=== PATIENT | female | born 1960 ===

== ENCOUNTER 2023-01-18 14:07 | Outpatient (CLI) | payer OTHER, SELFPAY ==
--- NOTE | 2023-01-18 | ECG_ITS ---
Measurements Intervals [place] Rate: 83 P: 39 [place]: 155 QRS: 7 QRSD: 94 T: 31 QT: 364 QTc: 429 Interpretive Statements REDUCED QUALITY TRACING WITH BASELINE ARTIFACT SINUS RHYTHM GROSSLY NORMAL ECG NO PREVIOUS ECG AVAILABLE FOR COMPARISON Electronically Signed On 01-18-2023 14:52:13 CDT by Lisandro Austin M.D.
[2023-01-18 14:53] LABS: Sodium 138 mmol/L (137-145)
[2023-01-18 15:10] LABS: Anion Gap 8 mmol/L (8-16); Blood Urea Nitrogen 9 mg/dL (7-17); Calcium 9.7 mg/dL (8.4-10.2); Carbon Dioxide 27 mmol/L (22-30); Chloride 103 mmol/L (98-107); Estimated Glomerular Filt Rate 50; Glucose 127 mg/dL (65-110); Potassium 4.1 mmol/L (3.4-5.0)
== END 2023-01-18 14:08 | disposition home or self-care (01) ==
LOC: ANHLAB 14:11
PROVIDERS: PCP Family Medicine; Visit Provider Podiatrist Foot & Ankle Surgery
DX: I10 Essential (primary) hypertension (principal)
CPT/HCPCS: 36415; 80048; 93005

== ENCOUNTER 2024-02-10 13:47 | Outpatient (CLI) | payer OTHER, SELFPAY ==
--- NOTE | ~2024-02-10 | MM_ITS ---
EXAMINATION: MM screening norma BI w kayla HISTORY: Screening mammogram, family history of breast cancer in her sister. TECHNIQUE: Craniocaudal and mediolateral oblique 3-D tomosynthesis images were obtained and synthetic 2-D images were generated. CAD analysis was submitted and interpreted. COMPARISON: 04/02/2013 BREAST PARENCHYMAL COMPOSITION:Not Dense. The breasts are almost entirely fatty FINDINGS: No suspicious mass, calcification, or architectural distortion are identified in either miranda ast to suggest malignancy. There has been no suspicious interval change. IMPRESSION: No mammographic evidence of malignancy. Recommend routine screening mammography in one year. BI-RADS Category 1: Negative Reviewed, dictated and finalized at location .
== END 2024-02-10 13:48 | disposition home or self-care (01) ==
LOC: MICIMG 13:48
PROVIDERS: PCP Physician Assistant; Visit Provider Physician Assistant
DX: Z12.31 Encounter for screening mammogram for malignant neoplasm of breast (principal)
CPT/HCPCS: 77063; 77067

== ENCOUNTER 2025-05-17 16:27 | Emergency (ER) | payer OTHER, SELFPAY ==
--- NOTE | ~2025-05-17 | XR_ITS ---
XR knee LT min 4V 05/17/2025 17:52 Indication: Left knee pain Procedure: 4 views left knee Comparison: No prior studies for comparison. Findings: No fracture, subluxation or dislocation. No significant joint effusion. No foreign bodies. Impression: 1: No acute bone or joint abnormality. Reviewed, dictated and finalized at location O. LYST OPERATOR GASOLINE Impression: 1: No acute bone or joint abnormality.
[2025-05-17 17:03] VITALS: BP 136/66; PULSE 61; RESP 16; TEMP 36.3; O2SAT 100
--- OUTSIDE RECORDS SUMMARY | 2025-05-17 17:16 | XMS_ITS | Data Portability ---
[facility] Organization [facility] Address [address] [place] [address] Care Team Providers Care Nutritionist Name Role Phone LEDY FONSECA Primary Care Provider Assessment Encounter Date Assessment Date Assessment LastModified by Organization Details LastModified Time 12/08/2024 12/08/2024 Sections of the HPI, exam and assessment completed by Fabián Wilcox, JAVIER student and have been reviewed by me. I agree with the exam findings, assessment and plan except where specifically documented or amended. -Ledy Fonseca, [facility] [email or web address] Not available 12/08/2024 14:26:17 Plan of Treatment Reminders Order Date Submit Date Provider Last Modified By Organization Details Last Modified Time Details Appointments None recorded. Lab microalbumi n/creatinin e, mass ratio, urine 2024 025 NIKUNJ [facility], [address] [place] [address], [facility] [address], [place], [address], 14:13:33 HbA1c (hemoglobin A1c), blood 2024 025 [email or web address] In-Office Order, Internal Use Only DO Not Attach Compendium DO Not Attach Compendium, Do Not Delete/merge, [id number] 14:26:10 CMP, serum or plasma 2024 025 NIKUNJ [facility], [address], [address], [address], 09:16:12 lipid panel, serum or plasma 2024 025 NIKUNJ [facility], [address], [address], [place], [address], 5 09:16:10 CBC w/ auto diff 2024 025 NIKUNJ [facility], [address], [address], [place], [address], 5 09:16:13 TSH + free T4, serum 2024 025 NIKUNJ [facility], [address], [address], [place], [address], 5 09:16:09 HbA1c (hemoglobin A1c), blood 2024 025 [email or web address] In-Office Order, Internal Use Only DO Not Attach Compendium DO Not Attach Compendium, Do Not Delete/merge, 5 15:09:23 HbA1c (hemoglobin A1c), blood 2023 024 [email or web address] In-Office Order, Internal Use Only DO Not Attach Compendium DO Not Attach Compendium, Do Not Delete/merge, [id number] 14:24:57 lipid panel, serum 2023 024 NIKUNJ [facility], [address] [facility], [address], [place], [address], 4 08:28:12 HbA1c (hemoglobin A1c), blood 2023 024 [email or web address] In-Office Order, Internal Use Only DO Not Attach Compendium DO Not Attach Compendium, Do Not Delete/merge, [id number] 4 16:12:27 microalbumi n/creatinin e, mass ratio, urine 2023 024 NIKUNJ [facility], [address] [facility], [address], [place], [address], 4 08:28:09 Referral None recorded. Procedures None recorded. Surgeries None recorded. Imaging None recorded. Medication Orders Mounjaro 2.5 mg/0.5 mL subcutaneou s pen injector 2024 [email or web address], [address], [address], [place], [place], [id number], 14:43:06 hydroxyzine HCl 10 mg tablet 2024 025 NIKUNJ [facility], [address], [address], [place], [place], [id number], 5 15:06:43 Ozempic 2 mg/dose (8 mg/3 mL) subcutaneou s pen injector 2024 025 NIKUNJ [facility], [address], [address], [place], [place], [id number], 14:56:41 atorvastati n 40 mg tablet 2024 025 ANDERSON [facility], [address], [address], [place], [place], [id number], 5 15:06:42 propranolol 20 mg tablet 2023 025 ANDERSON [facility] #[id number], [address], [place], [id number], 5 15:04:19 nystatin 100,000 unit/gram topical powder 2023 024 [id number], [address], [place], [id number], 5 15:06:58 Ozempic 1 mg/dose (4 mg/3 mL) subcutaneou s pen injector 2023 024 [email or web address] [facility] #[id number], [address], [place], [place], [id number], 14:27:05 Ozempic 0.25 mg or 0.5 mg (2 mg/1.5 mL) subcutaneou s pen injector 2023 024 [email or web address] [facility], [address] [place] [address], [address], [place], [place], [id number], 14:39:52 amlodipine 10 mg tablet 2023 024 NIKUNJ [facility], [address] [place] [address], [address], [place], [place], [id number], 14:36:15 Patient TargetsNo targets recorded. Patient Instructions Encounter Date Encounter Id Patient Instructions Last Modified By Organization Details Last Modified Time 08/18/2024 [id number] A healthy lifestyle: care instructions [email or web address] Not available 08/18/2024 15:09:23 Reason for Referral None Reported. Results Created Date Observation Date Name Description Value Unit Range Abnormal Flag Note LastModifiedBy Organization Detail LastModifiedTime 11/19/1911/20/2023 ALBUM IN/CR EAT RATIO , RANDO M UR creatinine, urine 199.2 mg/dL notest ab. Not Available [facility] ([facility]) [address] [place], [address], 11/20/2023 08:28:09 11/19/1911/20/2023 ALBUM IN/CR EAT RATIO , RANDO M UR albumin, urine <3.0 ug/mL notest ab. Not Available [facility] ([facility]) [address] [facility], [place], [address], 11/20/2023 08:28:09 11/19/19 24 11/20/2023 ALBUM IN/CR EAT RATIO , RANDO M UR alb/creat ratio <2 Steff l: 0 - 29 Moder ately incre ased: 30 - 300 Sever dominguez incre ased: >300 Not Available [facility] ([facility]) [address] [facility], [place], [address], 11/20/2023 08:28:09 11/19/19 24 11/19/2023 HbA1c (hemo globi n A1c), blood HbA1c 6.5% Not Available In-Office Order Internal Use Only DO Not Attach Compendium DO Not Attach Compendium, Do Not Delete/merge, [id number] 11/19/2023 14:32:43 03/04/2003/05/2024 LIPID PANEL WITH LDL/H DL RATIO cholesterol, total 163 mg/dL 100-19 9 Not Available [facility] ([facility]) [address] [facility], [place], [address], 03/05/2024 08:28:12 03/04/20 24 03/05/2024 LIPID PANEL WITH LDL/H DL RATIO triglyceride s 121 mg/dL 0-149 Not Available [facility] ([facility]) [address] [facility], [place], [address], 03/05/2024 08:28:12 03/04/20 24 03/05/2024 LIPID PANEL WITH LDL/H DL RATIO HDL cholesterol 40 mg/dL >39 Not Available [facility] ([facility]) [address] [facility], [place], [address], 03/05/2024 08:28:12 03/04/20 24 03/05/2024 LIPID PANEL WITH LDL/H DL RATIO VLDL cholesterol rosangela 22 mg/dL 5-40 Not Available [facility] ([facility]) [address] [facility], [place], [address], 03/05/2024 08:28:12 03/04/20 24 03/05/2024 LIPID PANEL WITH LDL/H DL RATIO LDL chol calc ([facility]) 101 mg/dL 0-99 above high normal Not Available [facility] ([facility]) [address] [facility], [place], [address], 03/05/2024 08:28:12 03/04/20 24 03/05/2024 LIPID PANEL WITH LDL/H DL RATIO LDL/HDL ratio 2.5 ratio 0.0-3. 2 LDL/H DL Ratio Men Women 1/2 Avg.R isk 1.0 1.5 Avg.R isk 3.6 3.2 2X Avg.R isk 6.2 5.0 3X Avg.R isk 8.0 6.1 Not Available [facility] ([facility]) [address] [place], [address], 03/05/2024 08:28:12 03/04/20 24 03/04/2024 HbA1c (hemo globi n A1c), blood HbA1c 5.9% Not Available In-Office Order Internal Use Only DO Not Attach Compendium DO Not Attach Compendium, Do Not Delete/merge, [id number] 03/04/2024 14:24:44 08/19/1908/19/2024 TSH+F REE T4 TSH 1.500 uIU/m L 0.450- 4.500 Not Available [facility] ([facility]) [address] [facility], [place], [address], 08/19/2024 09:16:09 08/19/19 25 08/19/2024 TSH+F REE T4 T4,free(dire ct) 1.20 NG/dL 0.82-1 .77 Not Available [facility] ([facility]) [address] [place], [address], 08/19/2024 09:16:09 08/19/1908/19/2024 LIPID PANEL WITH LDL/H DL RATIO cholesterol, total 169 mg/dL 100-19 9 Not Available [facility] ([facility]) [address] [place], [address], 08/19/2024 09:16:10 08/19/19 25 08/19/2024 LIPID PANEL WITH LDL/H DL RATIO triglyceride s 109 mg/dL 0-149 Not Available [facility] ([facility]) [address] [facility], [place], [address], 08/19/2024 09:16:10 08/19/1908/19/2024 LIPID PANEL WITH LDL/H DL RATIO HDL cholesterol 43 mg/dL >39 Not Available [facility] ([facility]) [address] [place], [address], 08/19/2024 09:16:10 08/19/19 25 08/19/2024 LIPID PANEL WITH LDL/H DL RATIO VLDL cholesterol rosangela 20 mg/dL 5-40 Not Available [facility] ([facility]) [address] [place], [address], 08/19/2024 09:16:10 08/19/1908/19/2024 LIPID PANEL WITH LDL/H DL RATIO LDL chol calc ([facility]) 106 mg/dL 0-99 above high normal Not Available [facility] ([facility]) [address] [place], [address], 08/19/2024 09:16:10 08/19/1908/19/2024 LIPID PANEL WITH LDL/H DL RATIO LDL/HDL ratio 2.5 ratio 0.0-3. 2 LDL/H DL Ratio Men Women 1/2 Avg.R isk 1.0 1.5 Avg.R isk 3.6 3.2 2X Avg.R isk 6.2 5.0 3X Avg.R isk 8.0 6.1 Not Available [facility] ([facility]) [address] [place], [address], 08/19/2024 09:16:10 08/19/1908/19/2024 COMP. METAB OLIC PANEL (14) glucose 89 mg/dL 70-99 Not Available [facility] ([facility]) [address] [place], [address], 08/19/2024 09:16:12 08/19/19 25 08/19/2024 COMP. METAB OLIC PANEL (14) BUN 10 mg/dL 8-27 Not Available [facility] ([facility]) [address] [facility] [place], [address], 08/19/2024 09:16:12 08/19/19 25 08/19/2024 COMP. METAB OLIC PANEL (14) creatinine 1.13 mg/dL 0.57-1 .00 above high normal Not Available [facility] ([facility]) [address] [facility] [place], [address], 08/19/2024 09:16:12 08/19/19 25 08/19/2024 COMP. METAB OLIC PANEL (14) eGFR 55 mL/mi n/1.7 3 >59 below low normal Not Available [facility] ([facility]) [address] [facility], [place], [address], 08/19/2024 09:16:12 08/19/19 25 08/19/2024 COMP. METAB OLIC PANEL (14) BUN/creatini ne ratio 9 12-28 below low normal Not Available [facility] ([facility]) [address] [facility] [place], [address], 08/19/2024 09:16:12 08/19/19 25 08/19/2024 COMP. METAB OLIC PANEL (14) sodium 140 mmol/ L 134-14 4 Not Available [facility] ([facility]) [address] [facility] [place], [address], 08/19/2024 09:16:12 08/19/19 25 08/19/2024 COMP. METAB OLIC PANEL (14) potassium 4.3 mmol/ L 3.5-5. 2 Not Available [facility] ([facility]) [address] [facility] [place], [address], 08/19/2024 09:16:12 08/19/19 25 08/19/2024 COMP. METAB OLIC PANEL (14) chloride 102 mmol/ L 96-106 Not Available [facility] ([facility]) [address], [place], [address], 08/19/2024 09:16:12 08/19/1908/19/2024 COMP. METAB OLIC PANEL (14) carbon dioxide, total 23 mmol/ L 20 Not Available [facility] ([facility]) [address] [facility] [place], [address], 08/19/2024 09:16:12 08/19/1908/19/2024 COMP. METAB OLIC PANEL (14) calcium 9.4 mg/dL 8.7-10 .3 Not Available [facility] ([facility]) [address] [facility] [place], [address], 08/19/2024 09:16:12 08/19/1908/19/2024 COMP. METAB OLIC PANEL (14) protein, total 6.8 g/dL 6.0-8. 5 Not Available [facility] ([facility]) [address] [facility] [place], [address], 08/19/2024 09:16:12 08/19/1908/19/2024 COMP. METAB OLIC PANEL (14) albumin 4.4 g/dL 3.9-4. 9 Not Available [facility] ([facility]) [address] [facility] [place], [address], 08/19/2024 09:16:12 08/19/1908/19/2024 COMP. METAB OLIC PANEL (14) globulin, total 2.4 g/dL 1.5-4. 5 Not Available [facility] ([facility]) [address] [facility] [place], [address], 08/19/2024 09:16:12 08/19/1908/19/2024 COMP. METAB OLIC PANEL (14) bilirubin, total 0.5 mg/dL 0.0-1. 2 Not Available [facility] ([facility]) [address] [facility], [place], [address], 08/19/2024 09:16:12 08/19/1908/19/2024 COMP. METAB OLIC PANEL (14) alkaline phosphatase 83 IU/L 44-121 Not Available [facility] ([facility]) [address] [place], [address], 08/19/2024 09:16:12 08/19/1908/19/2024 COMP. METAB OLIC PANEL (14) AST (SGOT) 16 IU/L 0-40 Not Available [facility] ([facility]) [address] [facility] [place], [address], 08/19/2024 09:16:12 08/19/1908/19/2024 COMP. METAB OLIC PANEL (14) ALT (SGPT) 20 IU/L 0-32 Not Available [facility] ([facility]) [address] [facility], [place], [address], 08/19/2024 09:16:12 08/19/1908/19/2024 CBC WITH DIFFE RENTI AL/PL ATELE T WBC 6.2 x10e3 /uL 3.4-10 .8 Not Available [facility] ([facility]) [address] [facility] [place], [address], 08/19/2024 09:16:13 08/19/1908/19/2024 CBC WITH DIFFE RENTI AL/PL ATELE T RBC 5.16 x10e6 /uL 3.77-5 .28 Not Available [facility] ([facility]) [address] [facility] [place], [address], 08/19/2024 09:16:13 08/19/1908/19/2024 CBC WITH DIFFE RENTI AL/PL ATELE T hemoglobin 14.0 g/dL 11.1-1 5.9 Not Available [facility] ([facility]) [address] [facility] [place], [address], 08/19/2024 09:16:13 08/19/1908/19/2024 CBC WITH DIFFE RENTI AL/PL ATELE T hematocrit 43.0 % 34.0-4 6.6 Not Available [facility] ([facility]) [address] [facility], [place], [address], 08/19/2024 09:16:13 08/19/1908/19/2024 CBC WITH DIFFE RENTI AL/PL ATELE T MCV 83 fL 79-97 Not Available [facility] ([facility]) [address] [facility], [place], [address], 08/19/2024 09:16:13 08/19/1908/19/2024 CBC WITH DIFFE RENTI AL/PL ATELE T MCH 27.1 pg 26.6-3 3.0 Not Available [facility] ([facility]) [address] [facility], [place], [address], 08/19/2024 09:16:13 08/19/1908/19/2024 CBC WITH DIFFE RENTI AL/PL ATELE T MCHC 32.6 g/dL 31.5-3 5.7 Not Available [facility] ([facility]) [address] [facility], [place], [address], 08/19/2024 09:16:13 08/19/1908/19/2024 CBC WITH DIFFE RENTI AL/PL ATELE T RDW 14.8 % 11.7-1 5.4 Not Available [facility] ([facility]) [address] [place], [address], 08/19/2024 09:16:13 08/19/1908/19/2024 CBC WITH DIFFE RENTI AL/PL ATELE T platelets 195 x10e3 /uL 150-45 0 Not Available [facility] ([facility]) [address] [facility], [place], [address], 08/19/2024 09:16:13 08/19/1908/19/2024 CBC WITH DIFFE RENTI AL/PL ATELE T neutrophils 54 % notest ab. Not Available [facility] ([facility]) [address] [facility], [place], [address], 08/19/2024 09:16:13 08/19/1908/19/2024 CBC WITH DIFFE RENTI AL/PL ATELE T lymphs 34 % notest ab. Not Available [facility] ([facility]) [address] [facility], [place], [address], 08/19/2024 09:16:13 08/19/1908/19/2024 CBC WITH DIFFE RENTI AL/PL ATELE T monocytes 10 % notest ab. Not Available [facility] ([facility]) [address] [facility], [place], [address], 08/19/2024 09:16:13 08/19/1908/19/2024 CBC WITH DIFFE RENTI AL/PL ATELE T eos 1 % notest ab. Not Available [facility] ([facility]) [address] [facility], [place], [address], 08/19/2024 09:16:13 08/19/1908/19/2024 CBC WITH DIFFE RENTI AL/PL ATELE T basos 1 % notest ab. Not Available [facility] ([facility]) [address] [facility], [place], [address], 08/19/2024 09:16:13 08/19/1908/19/2024 CBC WITH DIFFE RENTI AL/PL ATELE T neutrophils (absolute) 3.3 x10e3 /uL 1.4-7. 0 Not Available [facility] ([facility]) [address] [facility], [place], [address], 08/19/2024 09:16:13 08/19/1908/19/2024 CBC WITH DIFFE RENTI AL/PL ATELE T lymphs (absolute) 2.1 x10e3 /uL 0.7-3. 1 Not Available [facility] ([facility]) [address] [facility], [place], [address], 08/19/2024 09:16:13 08/19/1908/19/2024 CBC WITH DIFFE RENTI AL/PL ATELE T monocytes(ab solute) 0.6 x10e3 /uL 0.1-0. 9 Not Available [facility] ([facility]) [address] [facility], [place], [address], 08/19/2024 09:16:13 08/19/1908/19/2024 CBC WITH DIFFE RENTI AL/PL ATELE T eos (absolute) 0.1 x10e3 /uL 0.0-0. 4 Not Available [facility] ([facility]) [address] [facility], [place], [address], 08/19/2024 09:16:13 08/19/1908/19/2024 CBC WITH DIFFE RENTI AL/PL ATELE T baso (absolute) 0.0 x10e3 /uL 0.0-0. 2 Not Available [facility] ([facility]) [address] [facility], [place], [address], 08/19/2024 09:16:13 08/19/1908/19/2024 CBC WITH DIFFE RENTI AL/PL ATELE T immature granulocytes 0 % notest ab. Not Available [facility] ([facility]) [address] [place], [address], 08/19/2024 09:16:13 08/19/1908/19/2024 CBC WITH DIFFE RENTI AL/PL ATELE T immature grans (abs) 0.0 x10e3 /uL 0.0-0. 1 Not Available [facility] ([facility]) [address] [place], [address], 08/19/2024 09:16:13 08/19/19 25 08/18/2024 HbA1c (hemo globi n A1c), blood HbA1c 5.6% Not Available In-Office Order Internal Use Only DO Not Attach Compendium DO Not Attach Compendium, Do Not Delete/merge, [id number] 08/18/2024 15:08:31 12/09/19 25 12/09/2024 ALBUM IN/CR EAT RATIO , RANDO M UR creatinine, urine 110.7 mg/dL notest ab. Not Available [facility] ([facility]) [address] [facility], [place], [address], 12/09/2024 14:13:32 12/09/19 25 12/09/2024 ALBUM IN/CR EAT RATIO , RANDO M UR albumin, urine <3.0 ug/mL notest ab. Not Available [facility] ([facility]) [address] [facility], [place], [address], 12/09/2024 14:13:32 12/09/19 25 12/09/2024 ALBUM IN/CR EAT RATIO , RANDO M UR alb/creat ratio <3 Steff l: 0 - 29 Moder ately incre ased: 30 - 300 Sever dominguez incre ased: >300 Not Available [facility] ([facility]) [address] [place], [address], 12/09/2024 14:13:32 12/09/19 25 12/08/2024 HbA1c (hemo globi n A1c), blood HbA1C 5.8 % Not Available In-Office Order Internal Use Only DO Not Attach Compendium DO Not Attach Compendium, Do Not Delete/merge, 12/08/2024 14:25:59 02/10/20 24 02/10/2024 MAMMisabela Ridley bilat eral No observ ation record ed. NIKUNJ [facility] [address], [place], [address], 02/10/2024 20:56:43 Result Notes None recorded. Problems Name Problem SNOMED Code Status Onset Date Resolution Date Notes Provider Name and Address Organization Details Recorded Time Hypertensive disorder 79399549 Active 2023 MAXINE Padilla, [place] - [place] 4 14:38:08 Malignant neoplasm of colon 672830341 Active 2023 JAVIER BATEMAN Attn: Quinn gerardo,[address] [facility], [place], [address], [facility] - SI 4 09:16:25 Essential hypertension 87914973 Active 2023 JAVIER BATEMAN Attn: Quinn gerardo,[address] [facility], [place], [place], [address] [place] [address] 2, [facility] - SI 4 09:16:24 Type 2 diabetes mellitus without complication 036064320 Active 2023 JAVIER BATEMAN Attn: Quinn gerardo,[address] [facility], [place], [place], [address] [place] [address] 2, [facility] - [facility] 4 09:12:36 Social phobia 17603079 Active 2023 JAVIER BATEMAN Attn: Quinn gerardo,[address] [facility], [place], [address], [facility] - SI 4 15:27:22 Problem Notes None recorded. Procedures Surgical History Date Name Laterality Status Provider Name and Address Organization Details Recorded Time section completed Emelia Saldana MA [facility] 08/15/2023 14:39:11 screening for malignant neoplasm of colon completed Emelia Saldana MA [facility] 08/15/2023 14:39:18 Imaging Results None recorded. Procedure Notes None recorded. Medical Equipment None Reported. Allergies Allergen ID Allergen Name Allergen Category Reaction Reaction Severity Criticality Documentation Date Start Date Code Code System Note Provider Name and Address Organization Details Recorded Time Product containin g penicilli n (product) medicatio n Not available Not available Not available 08/15/2023 [id number] SNOMED MAXINE Padilla, [facility] 4 14:37:29 Medications Name Sig Start Date Stop Date Status Note LastModified by Organization Details LastModified Time atorvastati n 40 mg tablet TAKE 1 TABLET BY MOUTH DAILY AT DINNER FOR HIGH CHOLESTER OL 2024 active Not Available Not Available Not Avai lable metformin 500 mg tablet TAKE 1 TABLET EVERDAY WITH MEALS FOR 1 WK, THEN TAKE 1 TABLET TWICE A DAY WITH MEALS FOR 1 WK, THEN TAKE 2 TABLETS TWICE A DAY WITH MEALS FOR 30 DAYS 11/18 completed Not Available Not Available Not Available amlodipine 2.5 mg tablet Take 1 tablet every day by oral route in the morning for 30 days. 11/18 completed Not Available Not Available Not Available aspirin 81 mg tablet,ирина yed release Take 1 tablet every day by oral route in the morning for 30 days. active Not Available Not Available No t Available oxycodone-a cetaminophe n 5 mg-325 mg tablet TAKE 1 TABLET BY MOUTH EVERY 4 TO 6 HOURS NEEDED FOR PAIN 09/18 completed Not Available Not Available Not Available amlodipine 10 mg tablet TAKE 1 TABLET BY MOUTH DAILY IN THE MORNING FOR HIGH BLOOD PRESSURE 2024 active Not Available Not Available Not Avai lable propranolol 20 mg tablet TAKE 1 TABLET BY MOUTH 30 MINUTES TO 1 HOUR BEFORE SOCIAL ACTIVITY 08/18 completed Not Available Not Available Not Available hydroxyzine HCl 10 mg tablet TAKE 1 TABLET BY MOUTH THREE TIMES DAILY NEEDED active Not Available Not Available No t Available Asprin Ec Low Dose 81 mg tablet,ирина yed release Take 1 tablet every day by oral route. 08/14 completed Not Available Not Available Not Available amlodipine 08/14 completed Not Available Not Available Not Available OneTouch Verio test strips USE TO TEST TWICE DAILY active Not Available Not Available No t Available Ozempic 0.25 mg or 0.5 mg (2 mg/1.5 mL) subcutaneou s pen injector Inject 0.25 mg every week by subcutane ous route as directed for 30 days, for type 2 diabetes. 11/18 completed Not Available Not Available Not Available OneTouch Delica Plus Lancet 33 gauge USE TO TEST TWICE DAILY active Not Available Not Available No t Available OneTouch Verio Reflect Meter USE TO CHECK SUGAR TWICE DAILY active Not Available Not Available No t Available Ozempic 1 mg/dose (4 mg/3 mL) subcutaneou s pen injector INJECT 1MG UNDER THE SKIN ONCE WEEKLY DIRECTED 03/04 completed Not Available Not Available Not Available Ozempic 2 mg/dose (8 mg/3 mL) subcutaneou s pen injector Inject 2 mg every week by subcutane ous route as directed for 30 days, for diabetes. 04/07 completed Not Available Not Available Not Available Mounjaro 7.5 mg/0.5 mL subcutaneou s pen injector INJECT 7.5 MG UNDER THE SKIN ONE DAY A WEEK 04/07 completed Not Available Not Available Not Available Mounjaro 5 mg/0.5 mL subcutaneou s pen injector ADMINISTE R 5 MG UNDER THE SKIN EVERY WEEK DIRECTED FOR DIABETES 04/07 completed Not Available Not Available Not Available Mounjaro 10 mg/0.5 mL subcutaneou s pen injector ADMINISTE R 10 MG UNDER THE SKIN EVERY WEEK DIRECTED FOR DIABETES active Not Available Not Available No t Available Mounjaro 2.5 mg/0.5 mL subcutaneou s pen injector Inject 2.5 mg every week by subcutane ous route as directed for 30 days, for diabetes. 04/07 completed Not Available Not Available Not Available Ozempic 0.25 mg or 0.5 mg (2 mg/3 mL) subcutaneou s pen injector INJECT 0.5MG UNDER THE SKIN EVERY WEEK DIRECTED 11/18 completed Not Available Not Available Not Available Klayesta 100,000 unit/gram topical powder APPLY TO AFFECTED AREA TWICE DAILY active PRN Not Available Not Available No t Available Vitals Date Recorded Body height Body mass index (BMI) Body weight Oxygen saturation Heart rate Respiratory rate Systolic And Diastolic Provider Name and Address Organization Details Last Updated DateTime 160.02 cm 37.6 kg/m2 25702.6 8 g 97 % 66 /min 17 /min 123/82 mm[Hg] Elsy Larios [place] - [facility] 14:43:02 Date Recorded Body height Body mass index (BMI) Body weight Oxygen saturation Heart rate Respiratory rate Systolic And Diastolic Provider Name and Address Organization Details Last Updated DateTime 4 160.02 cm 43.9 kg/m2 211335. 91 g 98 % 79 /min 16 /min 154/90 mm[Hg] Emelia Saldana MA [facility] 4 14:19:23 Date Recorded Systolic And Diastolic Provider Name and Address Organization Details Last Updated DateTime 11/19/2023 130/80 mm[Hg] JAVIER BAETMAN Attn: Accounting,[address] [place], [address], [facility] 11/19/2023 14:57:26 Date Recorded Body height Body mass index (BMI) Body weight Oxygen saturation Heart rate Respiratory rate Systolic And Diastolic Provider Name and Address Organization Details Last Updated DateTime 4 160.02 cm 42.6 kg/m2 528945. 57 g 97 % 74 /min 17 /min 138/83 mm[Hg] Elsy Larios MA [facility] 4 14:30:28 Date Recorded Body height Body mass index (BMI) Body weight Oxygen saturation Heart rate Respiratory rate Systolic And Diastolic Provider Name and Address Organization Details Last Updated DateTime 5 160.02 cm 37.2 kg/m2 60497.8 g 97 % 84 /min 16 /min 129/75 mm[Hg] Elsy Larios MA [facility] 5 14:20:08 Date Recorded Body height Body mass index (BMI) Body weight Oxygen saturation Heart rate Respiratory rate Systolic And Diastolic Provider Name and Address Organization Details Last Updated DateTime 4 160.02 cm 39.7 kg/m2 195460. 69 g 97 % 68 /min 16 /min 118/61 mm[Hg] Emelia Saldana MA [facility] 4 14:21:53 Social History Question Answer Notes LastModified by Organizat ion Details LastModified Time Tobacco Smoking Status Never Smoker Emelia Saldana MA null, [facility] 08/15/2023 14:39:03 What Is Your Level Of Caffeine Consumption? Occasional Information not available 08/18/2024 What Was The Date Of Your Most Recent Tobacco Screening? 12/08/2024 Information not available 12/08/2024 Has Tobacco Cessation Counseling Been Provided? Yes Information not available 08/15/2023 On What Date Was Tobacco Cessation Counseling Provided? 12/08/2024 Information not available 12/08/2024 Sex: Unknown Functional Status Question Answer Note LastModified by Organizat ion Details LastModified Time Do you use any illicit or recreational drugs? No Information not available 08/18/2024 What is your level of alcohol consumption? None Information not available 08/18/2024 Mental Status None recorded. Family History Relationship Description Onset Age of this Age Resolved Age Notes LastModified by Organization Details LastModified Time Father No current problems or disability [email or web address] Not available 08/14 14:38:52 Mother No current problems or disability [email or web address] Not available 08/14 14:38:52 Medical History Condition Response Coronary Artery Disease N Other N Atrial Fibrillation N High Blood Pressure Y Thyroid Problems N Kidney or Bladder Problems N GI Problems N Depression N COPD N Blood Clots N Eating Disorder N Skin Problems N Anemia N Heart Attack (NV) N Anxiety Disorder N Diabetes N Muscle, Joint, or Bone Problems N Arthritis N Seizures/Epilepsy N Acid Reflux (GERD) N Cancer N Stroke N Asthma N Allergies N ADHD N Substance Abuse N High Cholesterol N Hepatitis N Liver Disease N Schizophrenia N Headaches N Heart Failure N Osteoporosis N Gynecological History Statement/Question Response Date of Last Pap Smear Age at Menarche 56 Date of Last Mammogram Age at First Child 29 Obstetrics History GPAL:G 2 P 0 0 0 2 Type Value Living 2 Total 2 Immunizations Vaccine Type Date Status Note Provider Nam e and Address Organization Details Recorded Time Tdap 11/04/2018 completed Not Available [facility] 12/08/2024 14:11:47 COVID-19, mRNA, LNP-S, PF, 30 mcg/0.3 mL dose 08/05/2020 completed Not Available [facility] 14:11:47 COVID-19, mRNA, LNP-S, PF, 30 mcg/0.3 mL dose 08/30/2020 completed Not Available [facility] 14:11:47 Past Encounters Encounter ID Performer Location Encounter Start Date Encounter Closed Date Diagnosis/Indication Diagnosis SNOMED-CT Code Diagnosis ICD10 Code Diagnosis IMO Codes Diagnosis Note [id number] Kannan anders MD [facility] [address] [place] [address] 08/15/2023 14:30:09 08/15/2023 15:21:57 Essential hypertension 87652289 I10 BP 179/104, 160/104str essful event before appton amlodipine 2.[address] Lugo in the past due to HTN and murmurPEx- nl, no murmur appreciate d on examrec'd to buy BP cuffadvise d to check BP at home, goal BP <130/80, f/u with BP log in 1 wkf/u in 1 mo Malignant neoplasm of colon 845121141 C18.9 2014sigmoi d colon cancer, stage 2, removed 8 inches of colonno chemothera pyno FH of colonlast colonoscop y 3 yrs ago, follows with Dr. Yanez in [facility], told to repeat every 5 years Morbid obesity 325531539 E66.01 BMI 45.9gained 50 lbs in the past 3 yrsdiscuss ed increasing exercise and healthier food options, high protein, low fat dietdecrea se diet coke and sweets, smaller portion sizesexerc ise bike and walking as toleratedr outine labsf/u in 1 mo Bone spur of right foot 8882555970 43077 M25.774 repaired in [facility] ot walk long distances yet due to pain Screening for malignant neoplasm of breast 399236660 Z12.39 last mammo 5 yrs ago Screening for malignant neoplasm of cervix 083417281 Z12.4 last pap 5 yrs agorec'd to schedule [employer] Depression screening 171 453946 Z13.31 PHQ 4 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 x3 yrsa/w nasal congestion no relief with allergy medsadvise d to make eye dr prado, 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 to 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 [id number] Kannan anders MD [facility] [address] [place] [address] 09/19/2023 14:14:18 09/19/2023 14:45:52 Type 2 diabetes mellitus without complication 552865556 E11.9 09/19/23: after meal- 98-134, before meal- 118, 155attribu connor dizziness to metformin, can decrease dose to 1500 pending BS numbers, send numbers to portal in 2 wkswill send ozempic to see if insurance will coverf/u in 2 mo for a1c Last A1C:Fastin g BG range:Curr ent Therapy:St atin:LINDA/A RB:Foot Exam:Micro albumin:Pn eumovax 23:DM eye exam:Pt was counseled on low carbohydra te diet to better manage diabetes. We went discussed pt's diet at length and I made specific dietary recommenda tions. I also encouraged regular exercise of 30-60 minutes most days of the week. Pt was encouraged to get yearly diabetic eye exams as well. 08/15/23: hgb a1c 9.0start metformin and BS logf/u in 1 mo Essential hypertension 06660535 I10 09/19/23: BP at home 140-150s/8 0s, BP today 154/90can feel myself tensing with BP highincre ase amlodipine from 2.5 to 10 mgadvised to check BP at home, goal BP <130/80, f/u with BP log in 1 wk 08/15/23:BP 179/104, 160/104str essful event before appton amlodipine 2.[address] Lugo in the past due to HTN and murmurPEx- nl, no murmur appreciate d on examrec'd to buy BP cuffadvise d to check BP at home, goal BP <130/80, f/u with BP log in 1 wkf/u in 1 mo Screening for malignant neoplasm of breast 075802160 Z12.39 encouraged to schedule mammo Screening for malignant neoplasm of cervix 316824528 Z12.4 encouraged to make appt with [facility], last pap 5 yrs ago Screening for malignant neoplasm of colon 126458687 Z12.11 has appt this fall with Dr. Yanez Depression screening 171 995015 Z13.31 PHQ 0 [id number] Kannan anders MD [facility] [address] [place] [address] 11/19/2023 14:22:34 11/19/2023 14:50:13 Type 2 diabetes mellitus without complication 365772580 E11.9 11/19/23: a1c today 6.5%last a1c 9.0stopped metformin 2 months ago due to starting ozempicinc rease ozempic to 1 mgmicroalb umin pendingDF exam nlf/u in 3 mo 09/19/23: after meal- 98-134, before meal- 118, 155attribu connor dizziness to metformin, can decrease dose to 1500 pending BS numbers, send numbers to portal in 2 wkswill send ozempic to see if insurance will coverf/u in 2 mo for a1c Statin: ator 40ACE/ARB: not indicatedF oot Exam: nl, 11/19/23Mic roalbumin: pendingPne umovax 23: NEXT VISITDM eye exam: NEXT VISITPt was counseled on low carbohydra te diet to better manage diabetes. We went discussed pt's diet at length and I made specific dietary recommenda tions. I also encouraged regular exercise of 30-60 minutes most days of the week. Pt was encouraged to get yearly diabetic eye exams as well. 08/15/23: hgb a1c 9.0start metformin and BS logf/u in 1 mo Depression screening 171 504703 Z13.31 PHQ 0 Candidiasis of skin 4988 3006 B37.2 c/o red rash below breasts due to sweating from heatno relief with desitintri al nystatin powder Screening for malignant neoplasm of breast 305784343 Z12.39 scheduled Jan 2024 at [facility] Essential hypertension 13990594 I10 11/19/23: BP at home 130s/80sBP in office 138/83, 130/80, c/w amlodipine 10 mg 09/19/23: BP at home 140-150s/8 0s, BP today 154/90can feel myself tensing with BP highincre ase amlodipine from 2.5 to 10 mgadvised to check BP at home, goal BP <130/80, f/u with BP log in 1 wk 08/15/23:BP 179/104, 160/104str essful event before appton amlodipine 2.[address] Lugo in the past due to HTN and murmurPEx- nl, no murmur appreciate d on examrec'd to buy BP cuffadvise d to check BP at home, goal BP <130/80, f/u with BP log in 1 wkf/u in 1 mo [id number] Roberth Caro MD [facility] [address] [place] [address] 03/04/2024 14:18:08 03/04/2024 14:41:06 Type 2 diabetes mellitus without complication 656791506 E11.9 03/04/24: a1c today 5.9 %last a1c 6.5%declin ed prevnar 20 vaccinec/w ozempic 2 mgf/u in 3 mo for a1c 11/19/23: a1c today 6.5%last a1c 9.0stopped metformin 2 months ago due to starting ozempicinc rease ozempic to 1 mgmicroalb umin pending- nlDF exam nlf/u in 3 mo 09/19/23: after meal- 98-134, before meal- 118, 155attribu connor dizziness to metformin, can decrease dose to 1500 pending BS numbers, send numbers to portal in 2 wkswill send ozempic to see if insurance will coverf/u in 2 mo for a1c Statin: ator 40ACE/ARB: not indicatedF oot Exam: nl, 11/19/23Mic roalbumin: pendingPne umovax 23: NEXT VISITDM eye exam: NEXT VISITPt was counseled on low carbohydra te diet to better manage diabetes. We went discussed pt's diet at length and I made specific dietary recommenda tions. I also encouraged regular exercise of 30-60 minutes most days of the week. Pt was encouraged to get yearly diabetic eye exams as well. 08/15/23: hgb a1c 9.0start metformin and BS logf/u in 1 mo Essential hypertension 40311200 I10 03/04/24: BP 118/61, c/w amlodipine 10 11/19/23: BP at home 130s/80sBP in office 138/83, 130/80, c/w amlodipine 10 mg 09/19/23: BP at home 140-150s/8 0s, BP today 154/90can feel myself tensing with BP highincre ase amlodipine from 2.5 to 10 mgadvised to check BP at home, goal BP <130/80, f/u with BP log in 1 wk 08/15/23:BP 179/104, 160/104str essful event before appton amlodipine 2.[address] Lugo in the past due to HTN and murmurPEx- nl, no murmur appreciate d on examrec'd to buy BP cuffadvise d to check BP at home, goal BP <130/80, f/u with BP log in 1 wkf/u in 1 mo Screening for malignant neoplasm of cervix 234384600 Z12.4 encouraged to make appt with [facility], last pap 5 yrs ago Screening for malignant neoplasm of colon 678421157 Z12.11 encouraged to schedule appt with Dr. Yanez (GI) Social phobia 64011171 F 40.10 wants to trial propranolo l to help with social anxiety before work eventdaugh ter was prescribed from her PCP and it helped Depression screening 171 887408 Z13.31 PHQ 0 Hyperlipidemia 67167352 E78.5 re-check from 07/2023 labs and on ator 40 Influenza vaccination declined 432586281 Z28.21 [id number] Roberth Caro MD [facility] [address] [place] [address] 08/18/2024 14:19:45 08/18/2024 15:10:22 Type 2 diabetes mellitus without complication 452714187 E11.9 08/18/24: a1c today 5.6%, last a1c 5.9on ozempic 2 mgf/u in 3 mo, due for DF exam and microalbum in next visit 03/04/24: a1c today 5.9 %last a1c 6.5%declin ed prevnar 20 vaccinec/w ozempic 2 mgf/u in 3 mo for a1c 11/19/23: a1c today 6.5%last a1c 9.0stopped metformin 2 months ago due to starting ozempicinc rease ozempic to 1 mgmicroalb umin pending- nlDF exam nlf/u in 3 mo 09/19/23: after meal- 98-134, before meal- 118, 155attribu connor dizziness to metformin, can decrease dose to 1500 pending BS numbers, send numbers to portal in 2 wkswill send ozempic to see if insurance will coverf/u in 2 mo for a1c Statin: ator 40ACE/ARB: not indicatedF oot Exam: nl, 11/19/23Mic roalbumin: pendingPne umovax 23: NEXT VISITDM eye exam: NEXT VISITPt was counseled on low carbohydra te diet to better manage diabetes. We went discussed pt's diet at length and I made specific dietary recommenda tions. I also encouraged regular exercise of 30-60 minutes most days of the week. Pt was encouraged to get yearly diabetic eye exams as well. 08/15/23: hgb a1c 9.0start metformin and BS logf/u in 1 mo Hyperlipidemia 51594212 E78.5 refill Essential hypertension 93579450 I10 08/18/24: BP 123/82, c/w amlodipine 10 03/04/24: BP 118/61, c/w amlodipine 10 11/19/23: BP at home 130s/80sBP in office 138/83, 130/80, c/w amlodipine 10 mg 09/19/23: BP at home 140-150s/8 0s, BP today 154/90can feel myself tensing with BP highincre ase amlodipine from 2.5 to 10 mgadvised to check BP at home, goal BP <130/80, f/u with BP log in 1 wk 08/15/23:BP 179/104, 160/104str essful event before appton amlodipine 2.[address] Lugo in the past due to HTN and murmurPEx- nl, no murmur appreciate d on examrec'd to buy BP cuffadvise d to check BP at home, goal BP <130/80, f/u with BP log in 1 wkf/u in 1 mo Social phobia 76685126 F 40.10 08/18/24: tried propranolo l once and did not help with anxietywou ld like something PRN, advised pt of ADR 02/2024: wants to trial propranolo l to help with social anxiety before work eventdaugh ter was prescribed from her PCP and it helped Screening for malignant neoplasm of cervix 500213900 Z12.4 encouraged to make appt with [facility], last pap 5 yrs ago Screening for malignant neoplasm of colon 103337108 Z12.11 has appt with GI next month Depression screening 171 081329 Z13.31 PHQ 0 Obesity 713304140 E66.9 BMI 37.6routin e labs [id number] Roberth Caro MD [facility] [address] [place] [address] 12/08/2024 14:11:18 12/08/2024 14:46:22 Type 2 diabetes mellitus without complication 531326870 E11.9 12/08/24: a1c 5.8%, last a1c 5.6Switchi ng to Mounjaro 2.5, wanting to lose more weight (has plateaued over the last 6 months)meaghan roalbumin pendingf/u in 6 months for A1c 08/18/24: a1c today 5.6%, last a1c 5.9on ozempic 2 mgf/u in 3 mo, due for DF exam and microalbum in next visit 03/04/24: a1c today 5.9 %last a1c 6.5%declin ed prevnar 20 vaccinec/w ozempic 2 mgf/u in 3 mo for a1c 11/19/23: a1c today 6.5%last a1c 9.0stopped metformin 2 months ago due to starting ozempicinc rease ozempic to 1 mgmicroalb umin pending- nlDF exam nlf/u in 3 mo 09/19/23: after meal- 98-134, before meal- 118, 155attribu connor dizziness to metformin, can decrease dose to 1500 pending BS numbers, send numbers to portal in 2 wkswill send ozempic to see if insurance will coverf/u in 2 mo for a1c Statin: ator 40ACE/ARB: not indicatedF oot Exam: nl, 11/19/23Mic roalbumin: pendingPne umovax 23: NEXT VISITDM eye exam: NEXT VISITPt was counseled on low carbohydra te diet to better manage diabetes. We went discussed pt's diet at length and I made specific dietary recommenda tions. I also encouraged regular exercise of 30-60 minutes most days of the week. Pt was encouraged to get yearly diabetic eye exams as well. 08/15/23: hgb a1c 9.0start metformin and BS logf/u in 1 mo Essential hypertension 38850977 I10 12/08/24: BP 129/75, c/w amlodipine 10 08/18/24: BP 123/82, c/w amlodipine 10 03/04/24: BP 118/61, c/w amlodipine 10 11/19/23: BP at home 130s/80sBP in office 138/83, 130/80, c/w amlodipine 10 mg 09/19/23: BP at home 140-150s/8 0s, BP today 154/90can feel myself tensing with BP highincre ase amlodipine from 2.5 to 10 mgadvised to check BP at home, goal BP <130/80, f/u with BP log in 1 wk 08/15/23:BP 179/104, 160/104str essful event before appton amlodipine 2.[address] Lugo in the past due to HTN and murmurPEx- nl, no murmur appreciate d on examrec'd to buy BP cuffadvise d to check BP at home, goal BP <130/80, f/u with BP log in 1 wkf/u in 1 mo Malignant neoplasm of colon 761619182 C18.9 12/08/24: saw GI Dr. Vaughn 08/2024- History of sigmoid colon cancer s/p sigmoid colectomy 11/2012: She is overall doing very well now almost 12 years after her initial diagnosis and treatment, no evidence of recurrent disease on exam or based on symptomato logy. Given how far out she has, I do not think CEA is needed. She will be due for colonoscop y in 2025 which we will arrange, this being 5 years after her last colonoscop y in 2020. She should continue on daily aspirin as a chemopreve ntion agent as well as focus on continued weight loss and lifestyle issues to mitigate her colorectal cancer risk. 2014sigmoi d colon cancer, stage 2, removed 8 inches of colonno chemothera pyno FH of colonlast colonoscop y 3 yrs ago, [place], told to repeat every 5 years Depression screening 171 783147 Z13.31 1752616 PHQ 0 Cancer cer vix screening status 027163814 Z12.4 574794 encouraged to make appt with [facility], last pap 6 yrs ago Health Concerns Section Related Observation LastModified by Organization Detai ls LastModified Time None Recorded Concern Status LastModified by Organization Details LastModified Time None Recorded Advance Directives Directive None Recorded Payers Insurance Date Sequence Insurance Name Policy Number Policy Zapata Covered Member ID Zapata Member ID Guarantor Name 12/11/2024 1 [facility] [id number] Sarah Milligan Slemmer [id number] Sarah Pena Slemmer 08/15/2023 1 *SELF PAY* Fa kaylee Pena Slemmer Notes Date Note Type Note Provider Name and Address Organization Details Recorded Time 09/19/2023 text/html ROS as noted in the HPI Pt presents for T2DM f/u. Reports that she has been experiencing mild dizziness with standing since she started taking an increased dose of metformin. States that dizziness lasts a couple seconds and then goes away. Admits to adequate water intake and eating 2 meals/day. BP at home 140-150s/80s. JAVIER BATEMAN Attn: Accounting[address] [place], [address], [facility] 09/20/2023 09:12:56 11/19/2023 text/html ROS as noted in the HPI Pt presents for T2DM and HTN f/u. Reports fasting BS have been around 100s-120s. BP at home 130s/80s. She stopped taking metformin when she started Ozempic 1 mo ago and it has been suppressing her appetite. JAVIER BATEMAN Attn: [address]ing[address] [place], [address], [place] [facility] 11/19/2023 14:58:56 03/04/2024 text/html ROS as noted in the HPI Pt presents for T2DM f/u. States that she is tolerating max dose of ozempic well and has dropped a pant size. She has not made f/u appt with GI or scheduled WWE appt. JAVIER BATEMAN Attn: Accounting[address] [place], [address], [place] [facility] 03/04/2024 15:28:19 08/18/2024 text/html ROS as noted in the [facility] Pt presents for T2DM f/u. States that she is tolerating ozempic well on max dose. Denies fever, chills, chest pain, SOB, n/v/d, abd pain, dizziness, weakness, or headaches. JAVIER BATEMAN Attn: Accounting[address] [place], [address], [facility] 08/19/2024 06:44:10 12/08/2024 text/html ROS as noted in the [facility] Patient presenting for DM follow up. She is concerned her A1c has increased because she has been eating candy. She noticed at a work event 3 months ago that taking her hydroxyzine 1 week leading up to event was helpful in controlling her social phobia. No other complaints at this time. JAVIER BATEMAN Attn: Accounting[address] [place], [address], [facility] 12/09/2024 12:23:54 OBGyn Episode No OBEpisode recorded.
--- OUTSIDE RECORDS SUMMARY | 2025-05-17 17:16 | XMS_ITS | Clinical Summary ---
Author Organization [facility] Address [address] [place] [address] Care Team Providers Care Party Director Name Role Phone Ryan Vaughn MD Unavailable [phone] Belkys Penny MD Primary Care Provider [phone] Allergies Active Allergy Reactions Criticality Noted Date Comments Penicillins Other (See comments) Low Reaction: Medications aspirin 325 mg tablet daily. 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 Overview (08/17/2020): Added automatically from request for surgery [id number] Screen for colon cancer 03/11/2019 Overview (03/11/2019): Added automatically from request for surgery [id number] Skin tag of anus 08/30/2016 History of sigmoid colon cancer 11/25/2012 Never smoked tobacco 10/21/2012 Resolved Problems Problem Noted Date Diagnosed Date Resolved Date Malignant neoplasm of colon 10/14/2013 02/17/2018 Malignant neoplasm of descending colon 10/28/2012 02/17/2018 Surgical History Surgery Date Site/Laterality Comments COLECTOMY 11/25/2012 lap sigmoid colectomy with primary colorectal anastomosis and lap mobilization of the splenic flexure. COLONOSCOPY 11/24/2014 - 12/24/2014 SECTION x2 Medical History Medical History Date Comments Colorectal cancer (HCC) History of malignant neoplasm of colon 07/15/2013 History of sigmoid colon cancer 11/25/2012 Hypertension Kidney stone Family History Medical History Relation Name Comments Breast cancer Mother's Sister Family hist ory of malignant neoplasm of breast - (Added by TW Conv) Relation Name Status Comments Mother's Sister Social History Tobacco Use Types Packs/Day Years Used Date Smoking Tobacco: Never Smokeless Tobacco: Never Alcohol Use Standard Drinks/Week Comments No 0 (1 standard drink = 0.6 oz pur e alcohol) AUDIT-C Answer Date Recorded Q1: How often do you have a drink containing alc ohol? 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 Gender Identity Not on file Sexual Orientation Not on file Last Filed Vital Signs Vital Sign Reading Time Taken Comments Blood Pressure 134/85 08/31/2024 2:15 PM CDT Pulse 65 01/27/2021 9:12 AM CDT Temperature 36.8 C (98.3 F) 08/31/2024 2:15 PM CDT Respiratory Rate 11 01/27/2021 9:12 AM CDT Oxygen Saturation 99% 08/31/2024 2:15 PM CDT Inhaled Oxygen Concentration - - Weight 94.2 kg (207 lb 9.6 oz) 08/31/2024 2:11 P M CDT Height 157.7 cm (5' 2.09) 08/31/2024 2:12 PM CD T Body Mass Index 37.86 08/31/2024 2:11 PM CDT Plan of Treatment Health Maintenance Due Date Last Done Comments Breast Cancer Screening-Mammogram 1960 Cervical Cancer Screening 1960 Depression Screening 1960 Hepatitis C Screening 1960 Hepatitis B Screening 10/23/1979 Regular Well Visit/Exam 18-64 10/23/1979 Zoster Vaccine (1 of 2) 10/23/2011 Covid-19 Vaccine ( season) 2025 08/30/2020, 08/05/2020 Influenza Vaccine (#1) 2025 DTaP/Tdap/Td Vaccine (2 - Td or Tdap) 11/04/2028 11/04/2018 Colon Cancer Screening-Colonoscopy 01/27/2031 01/27/2021, 11/02/2016, 12/07/2013 Colon Cancer Screening-CT Colonography Discontinued 01/27/2021, 11/02/2016, 12/07/2013 Colon Cancer Screening-DNA Stool Discontinued 01/27/2021, 11/02/2016, 12/07/2013 Colon Cancer Screening-FIT Discontinued 01/27, 11/02/2016, 12/07/2013 Colon Cancer Screening-Sigmoidoscopy Discontinued 01/27/2021, 11/02/2016, 12/07/2013 Pneumococcal vaccine <65 Aged Out No longer eligible based on patient's age to complete this topic Procedures Procedure Name Priority Date/Time Associated Diagnosis Comments COLONOSCOPY 01/27/2021 8:24 AM CDT from Last 3 Months or Most Recently Relevant to Health Maintenance Results * COLONOSCOPY (01/27/2021 8:24 AM CDT) Anatomical Region Laterality Modality Other Narrative Procedure Note Ryan Vaughn MD - 01/27/2021 8:24 AM CDT [facility] Patient Name: Sarah Camargo Procedure Date: 01/27/2021 8:24 AM Date of : 1960 Admit Type: Outpatient Age: 60 Gender: Female Attending MD: Ryan Vaughn M.D. Room: [facility] ENDOSCOPY ROOM 8 Note Status: Finalized Procedure: Colonoscopy Indications: High risk colon cancer surveillance: Personalhistory of colon cancer, Last colonoscopy: October 2016 Referring MD: Belkys Wood M.D. Providers: Ryan Vaughn M.D. Medicines: Monitored Anesthesia Care Complications: No immediate complications. Estimated Blood Loss: Estimated blood loss was minimal. Procedure: Pre-Anesthesia Assessment: - Immediately prior to administration ofmedications, the patient was re-assessed for adequacy to receive sedatives. - Sedation was administered by an anesthesia professional. The sedation level attained wasmoderate. - The heart rate, respiratory rate, oxygen saturations, blood pressure, adequacy of pulmonary ventilation, and response to care were monitored throughout the procedure. - The physical status of the patient wasre-assessed after the procedure. - The risks and benefits of the procedure and the sedation options and risks were discussed with the patient. All questions were answered and informed consent was obtained. The benefits, risks and alternatives of theprocedure and sedation were discussed and informed consentwas obtained. All questions were answered. Please referto the signed informed consent document in the medical record. The scope was passed under direct vision.The [id number] endoscope was introduced through the anus and advanced to the cecum, identified by appendiceal orifice and ileocecal valve. The colonoscopy was performed without difficulty. The patient tolerated the procedure well. The qualityof the bowel preparation was excellent. The quality of the bowel preparation was evaluated using the BBPS ([place] Bowel Preparation Scale) with scores of:Right Colon = 3 (entire mucosa seen well with no residual staining, small fragments of stool or opaqueliquid), Transverse Colon = 3 (entire mucosa seen well withno residual staining, small fragments of stool oropaque liquid) and Left Colon = NA (segment surgicallyabsent or not seen due to reasons unrelated to bowel prep (i.e. technical difficulties or patientintolerance)). The total BBPS score equals 6* (*this score is the summation of 2 or fewer segments). The bowel preparation used was SUPREP via split dose instruction. Bowel prep was administered using asplit dose. Findings: The perianal and digital rectal examinations were normal. Pertinent negatives include no palpable rectal lesions. There was evidence of a prior end-to-end colo-rectal anastomosis inthe recto-sigmoid colon. This was patent and was characterized by healthy appearing mucosa and an intact staple line. The anastomosis was traversed. A 2 mm polyp was found in the cecum. The polyp was sessile. The polyp was removed with a jumbo cold forceps. Resection and retrieval were complete. Non-bleeding external hemorrhoids were found during retroflexion. The hemorrhoids were small. The exam was otherwise without abnormality on direct and retroflexion views. Impression: - Patent end-to-end colo-rectal anastomosis, characterized by healthy appearing mucosa and an intact staple line. - One 2 mm polyp in the cecum, removed with a jumbo cold forceps. Resected and retrieved. - Non-bleeding external hemorrhoids. - The examination was otherwise normal on directand retroflexion views. Recommendation: - Discharge patient to home. - Resume previous diet and advance diet astolerated. - Continue present medications. - Await pathology results. - Repeat colonoscopy date to be determined after pending pathology results are reviewed for surveillance based on pathology results. - Return to my office in 1 year. - Continue cancer surveillance, annual CEA andexams. - For polyp and cancer prevention: Consider daily aspirin if OK with primary care provider; Calcium, folate, and vitamin D; healthy diet low inprocessed and red meats, exercise regularly, maintain healthy weight. See [facility] [place] [facility] website for moreprevention tips. - Call the Colorectal Surgery offices [phone] with any questions, concerns, complications. After hours and weekends/Holidays, you will be directedto the on-call physician, if needed. Electronically signed by Ryan Vaughn MD Ryan Vaughn M.D. 01/27/2021 8:57:39 AM . Number of Addenda: 0 Note Initiated On: 01/27/2021 8:24 AM Recognized by the [place] [employer] for promoting quality in endoscopy Ryan Vaughn MD ENDOSCOPY PROCEDURES Final R esult from Last 3 Months or Most Recently Relevant to Health Maintenance Insurance [facility] CHOICE PLUS CHOICE PLUS Advance Directives For more information, please contact: [phone] * Full Code (Latest Code Status on File) Date Activated Date Inactivated Comments 01/27/2021 7:57 AM 01/27/2021 1:29 PM Care Teams Party Director Relationship Specialty Start Date End Date Belkys Penny MD PCP - General 01/26/21 Ryan Vaughn MD Surgeon Colon and Rectal Surgery 02/28/19
[2025-05-17 20:00] VITALS: BP 119/71; PULSE 62; RESP 16; O2SAT 97
--- OUTSIDE RECORDS SUMMARY | 2025-05-17 20:25 | XMS_ITS | Clinical Summary ---
Author Organization [facility] Address [address] [place] [address] Care Team Providers Care Trailhead Maintenance Worker Name Role Phone Ryan Vaughn MD Unavailable [phone] Belkys Penny MD Primary Care Provider [phone] Allergies Active Allergy Reactions Criticality Noted Date Comments Penicillins Other (See comments) Low Reaction: Medications aspirin 325 mg tablet daily. 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 [facility] 8 Note Status: Finalized Procedure: [...] The scope was passed under direct vision.The [id number] endoscope was introduced through the anus and advanced to the cecum, identified by appendiceal orifice and ileocecal valve. The colonoscopy was performed without difficulty. The patient tolerated the procedure well. The qualityof the bowel preparation was excellent. The quality of the bowel preparation was evaluated using the BBPS ([place] Bowel Preparation Scale) with scores of:Right Colon [...] meats, exercise regularly, maintain healthy weight. See [facility] Cancer website for moreprevention tips. - Call the Colorectal Surgery offices [phone] with any questions, concerns, complications. After hours and weekends/Holidays, you will be directedto the on-call physician, if needed. Electronically signed by Ryan Vaughn MD Ryan Vaughn M.D. 01/27/2021 8:57:39 AM . Number of Addenda: 0 Note Initiated On: 01/27/2021 8:24 AM Recognized by the [employer] [place] [employer] for promoting quality in endoscopy Ryan Vaughn MD ENDOSCOPY PROCEDURES Final R esult from Last 3 Months or Most Recently Relevant to Health Maintenance Insurance [facility] CHOICE PLUS CHOICE PLUS Advance Directives For more information, please contact: [phone] * Full Code (Latest Code Status on File) Date Activated Date Inactivated Comments 01/27/2021 7:57 AM 01/27/2021 1:29 PM Care Teams Trailhead Maintenance Worker Relationship Specialty Start Date End Date Belkys Penny MD PCP - General 01/26/21 Ryan Vaughn MD Surgeon Colon and Rectal Surgery 02/28/19
--- NOTE | 2025-05-17 20:26 | ED.LOWEXIN ---
HPI - Extremity Injury (Lower) General Chief Complaint: Extremity Injury, Lower Stated Complaint: left posterior knee pain, injury Time Seen by Provider: 05/17/25 18:00 Source: patient Mode of arrival: wheelchair Limitations: no limitations History of Present Illness HPI Narrative: This is a 64 yo female with history of diabetes, htn who presents to the ED for left knee pain. Patient states that a couple months ago, she believes she hyperextended her left knee. She had been doing well until a couple weeks ago when it began to flare up so she got a compression sleeve for. Today she was walking down her steps when she felt her knee pop and she has been unable to walk today since then. Denies hitting her head. Related Data Home Medications ?Medication ?Instructions ?Recorded ?Confirmed ?Last Taken ?Type aspirin 325 mg tablet 325 mg PO DAILY 06/10/19 08/05/20 Unknown History Allergies Allergy/AdvReac Type Severity Reaction Status Date / Time Penicillins Allergy Unknown Rash Verified 05/17/25 17:06 Review of Systems Review of Systems: All systems reviewed & are unremarkable except as noted in HPI and below PMFSH Past Medical History Medical History Aortic valve sclerosis Benign hypertension Cardiac murmur Diastolic dysfunction Elevated blood pressure reading without diagnosis of hypertension Grade II diastolic dysfunction Recurrent depression Surgical History Surgical History History of colon surgery Family History Family History Grandparent Diabetes mellitus Father Family history of Alzheimer's disease Other Family history of Parkinson's disease Social History Social History Smoking status: Never smoker Second hand tobacco smoke exposure: No Alcohol intake: never Substance use: never Substance use type: does not use Living arrangements: with family Occupation/Education: occupation Gender identity (if verbalized by the patient): Female Sexual Orientation (if Verbalized by the Patient): Straight or Heterosexual Spiritual care concerns: Yes (Babtist) Agree to blood products: Yes Exam Narrative: APPEARANCE: No acute distress, nontoxic, resting in bed HEENT: Normocephalic, atraumatic, OMM RESPIRATORY: No respiratory distress CARDIOVASCULAR: Appears well perfused ABDOMINAL: Nondistended MUSCULOSKELETAl: Peripatellar effusion on the left, no medial or lateral joint line tenderness, who negative posterior and anterior drawers, negative valgus and varus stress test. NEURO: Awake and alert. SKIN:: Warm, dry. No rashes lesions or abrasions PSYCHIATRIC: Normal affect/mood, Course Vital Signs Vital signs: Vital Signs Temperature 97.3 F L 05/17/25 17:03 Pulse Rate 61 05/17/25 17:03 Respiratory Rate 16 05/17/25 17:03 Blood Pressure 136/66 05/17/25 17:03 Pulse Oximetry 100 05/17/25 17:03 Oxygen Delivery Room Air 05/17/25 17:03 Temperature 97.3 F L 05/17/25 17:03 Pulse Rate 72 05/17/25 21:00 Respiratory Rate 16 05/17/25 21:00 Blood Pressure 121/74 05/17/25 21:00 Pulse Oximetry 98 05/17/25 21:00 Oxygen Delivery Room Air 05/17/25 17:03 [facility] MDM Narrative Medical decision making narrative: 64-year-old female Presenting for left knee injury. On initial evaluation patient was in no acute distress afebrile, hemodynamic stable. Differentials include but are not limited to: Fracture, sprain, strain, contusion Notable exam findings: Peripatellar effusion with no joint line tenderness I personally reviewed the patient's images and interpret as follows: X-ray left knee showed no acute fractures Suspect the patient has a ligamentous or meniscus injury. She are he has a compression sleeve applied to it. She was given Toradol. She was given a referral to a new PCP and to Dr. Leija, orthopedic surgery, for further evaluation and for likely MRI. Patient has a walker at home that she was advised to use. Patient was agreeable to this plan. Given strict return precautions. Differential Diagnosis Differential Diagnosis: Fracture, sprain, strain, contusion Imaging Data Radiologist's impression: ITS Impressions Knee X-Ray 05/17/25 17:56 Impression: 1: No acute bone or joint abnormality. Discharge Plan Discharge Clinical Impression: Sprain of left knee Qualifiers: Encounter type: initial encounter Involved ligament of knee: unspecified ligament Qualified Code(s): S83.92XA - Sprain of unspecified site of left knee, initial encounter Patient Disposition: Home Condition: Stable Instructions: Antibiotic Form Additional Instructions: Take tylenol and ibuprofen for pain. Recommend RICE therapy, rest, ice, compression, elevation. Follow up with Dr. Starr, family medicine, and Dr. Leija, orthopedic surgery for MRI. Return to the ED for new or worsening symptoms. Patient Language: Macedonian Prescriptions: No Action aspirin 325 mg tablet 325 mg PO DAILY amlodipine 2.5 mg tablet See Rx Instructions .ROUTE .COMPLEX Qty: 90 2RF Dose Instruction: TAKE 1 TABLET BY MOUTH DAILY Rx Instructions: TAKE 1 TABLET BY MOUTH DAILY Follow-up/Referrals: Maira,JAVIER Villafana [Primary Care Provider, Unknown] Jose D Starr MD [Physician, Family Practice] Dave Leija MD [Physician, Orthopedics]
[2025-05-17] MEDS: KETOROLAC 30 MG/ML VIAL (*BKC) IM (20:56)
[2025-05-17 21:00] VITALS: BP 121/74; PULSE 72; RESP 16; O2SAT 98
== END 2025-05-17 21:02 | disposition home or self-care (01) ==
PROVIDERS: Emergency Provider Student in an Organized Health Care Education/Training Program; PCP Physician Assistant
DX: S83.92XA Sprain of unspecified site of left knee, initial encounter (principal); E11.9 Type 2 diabetes mellitus without complications; I35.8 Other nonrheumatic aortic valve disorders; I11.9 Hypertensive heart disease without heart failure; F33.9 Major depressive disorder, recurrent, unspecified; Z79.82 Long term (current) use of aspirin; Z79.899 Other long term (current) drug therapy; X50.9XXA Other and unspecified overexertion or strenuous movements or postures, initial encounter
CPT/HCPCS: 73564; 96372; 99283; J1885